=== PATIENT | female | born 1940 | race Caucasian/White ===

== ENCOUNTER 2017-03-31 13:19 | Emergency (ER) | payer MEDICAID, MEDICARE, OTHER ==
[~2017-03-31] VITALS: Ht 154.9 cm; Wt 55.0 kg
[~2017-03-31 13:19] MED LIST: AMLO5TAB4 PO; ASPI-1158 PO; BENA20TA3 PO; CIPR-263 PO; DIABETIC PILL; FURO-151 PO; GLIP5TAB12 PO; LOSA50TA20 PO; METF500T4 PO; METO-539 PO; NORT10CA PO; OMEP20CA4 PO; SIMV20TA6 PO; TRAM50TA3 PO
[2017-03-31] MEDS ORDERED: MORPHINE SULFATE 4 MG/ML CPJ (NOT FOR IM USE) IV STA (13:49)
[2017-03-31] MEDS ORDERED: SODIUM CHLORIDE 0.9% 1,000 ML IV ONE (13:49)
[2017-03-31] MEDS ORDERED: ONDANSETRON HCL 4MG/2ML VIAL IV STA (13:49)
[2017-03-31 14:17] LABS: BASOPHILS % 0.5 % (0.0-2.0); EOSINOPHILS % 2.6 % (0.0-5.0); HEMATOCRIT. 34.8 % (36.0-48.0); LYMPHOCYTES % 27.8 % (20.0-50.0); MEAN CORPUSCULAR HEMOGLOBIN 28.9 pg (28.0-32.0); MEAN CORPUSCULAR VOLUME 83.9 fL (81.0-99.0); MEAN PLATELET VOLUME 7.8 fl (7.4-10.4); MONOCYTES % 7.5 % (2.0-8.0); NEUTROPHILS % 61.6 % (40.0-76.0); PLATELET 219 x1000/uL (130-400); RED BLOOD CELL COUNT 4.15 mill/uL (4.2-5.4); RED CELL DISTRIBUTION WIDTH 15.7 % (11.6-14.6)
[2017-03-31 14:23] LABS: PARTIAL THROMBOPLASTIN TIME 27.8 sec (23.4-31.0); PROTHROMBIN TIME 10.3 sec (9.4-11.6)
[2017-03-31 14:28] LABS: CHLORIDE 97 mEq/L (98-107)
[2017-03-31 14:31] LABS: TROPONIN I 0.02 ng/mL (0.00-0.04)
[2017-03-31 14:47] LABS: CLARITY URINE CLEAR (CLEAR); COLOR URINE YELLOW (YELLOW); KETONES URINE NEGATIVE (NEGATIVE); LEUKOCYTE ESTERASE URINE 2+ (NEGATIVE); NITRITE URINE POSITIVE (NEGATIVE); OCCULT BLOOD URINE TRACE (NEGATIVE); PROTEIN URINE NEGATIVE (NEGATIVE); SPECIFIC GRAVITY URINE 1.018 (1.005-1.030); UROBILINOGEN URINE 0.2 E.U./dL (0.2-1.0)
[2017-03-31] MEDS ORDERED: HYDRALAZINE 20MG/ML VIAL IV ONE (15:00)
[2017-03-31] MEDS ORDERED: LEVOFLOXACIN 250MG TABLET PO ONE (15:00)
[2017-03-31] MEDS ORDERED: IOHEXOL-300 100 ML BOTTLE ONE (16:30)
[2017-03-31 17:12] VITALS: BP 151/56
[2017-03-31] MEDS ORDERED: ONDANSETRON 4MG ODT PO ONE (17:45)
== END 2017-03-31 18:19 | disposition home or self-care (01) ==
LOC: ER 13:36
DX: K80.20 Calculus of gallbladder without cholecystitis without obstruction (principal); N39.0 Urinary tract infection, site not specified; I10 Essential (primary) hypertension; K44.9 Diaphragmatic hernia without obstruction or gangrene; I51.7 Cardiomegaly; M16.11 Unilateral primary osteoarthritis, right hip; M85.88 Other specified disorders of bone density and structure, other site; I67.82 Cerebral ischemia; M51.26 Other intervertebral disc displacement, lumbar region; E11.9 Type 2 diabetes mellitus without complications; W01.0XXA Fall on same level from slipping, tripping and stumbling without subsequent striking against object, initial encounter; Z88.0 Allergy status to penicillin; Z97.5 Presence of (intrauterine) contraceptive device; Z79.84 Long term (current) use of oral hypoglycemic drugs; Z79.82 Long term (current) use of aspirin
CPT/HCPCS: 36415; 70450; 71045; 71260; 72100; 72125; 73521; 74177; 80053; 81001; 83690; 84484; 85025; 85610; 85730; 86850; 86900; 86901; 87077; 87086; 87186; 93005; 96361; 96374; 96375; 99285; J2270; J2405; J7030; Q0162; Q9967

== ENCOUNTER 2020-10-18 08:30 | Emergency (ER) | payer MEDICARE, MEDICAID ==
[~2020-10-18] VITALS: Ht 162.6 cm; Wt 85.0 kg
[~2020-10-18 08:30] MED LIST changes: -ASPI-1158 PO; +ASPI-1406 PO; +BENA20TA10 PO; -BENA20TA3 PO; -LOSA50TA20 PO; +LOSA50TA41 PO; +METF-414 PO; -METF500T4 PO; +SIMV-43 PO; -SIMV20TA6 PO
[2020-10-18] MEDS ORDERED: NITROGLYCERIN OINT 1GM/INCH UDPKT TD ONE (09:00)
[2020-10-18] MEDS ORDERED: ACETAMINOPHEN 325MG TABLET PO ONE ×2 (09:00→16:30)
[2020-10-18 09:18] LABS: BASOPHILS % 0.8 % (0.0-2.0); EOSINOPHILS % 2.1 % (0.0-5.0); HEMATOCRIT. 34.4 % (36.0-48.0); HEMOGLOBIN. 11.9 g/dL (12.0-16.0); LYMPHOCYTES % 32.7 % (20.0-50.0); MEAN CORPUSCULAR HEMOGLOBIN 31.2 pg (28.0-32.0); MEAN CORPUSCULAR VOLUME 90.1 fL (81.0-99.0); MEAN PLATELET VOLUME 8.4 fl (7.4-10.4); MONOCYTES % 5.9 % (2.0-8.0); NEUTROPHILS % 58.5 % (40.0-76.0); PLATELET 205 x1000/uL (130-400); RED BLOOD CELL COUNT 3.81 mill/uL (4.2-5.4)
[2020-10-18 09:24] LABS: CHLORIDE 103 mEq/L (98-107)
[2020-10-18 09:59] LABS: CLARITY URINE CLEAR (CLEAR); COLOR URINE YELLOW (YELLOW); KETONES URINE NEGATIVE (NEGATIVE); LEUKOCYTE ESTERASE URINE 3+ (NEGATIVE); NITRITE URINE NEGATIVE (NEGATIVE); OCCULT BLOOD URINE NEGATIVE (NEGATIVE); PH URINE 8.5 (4.5-8.0); PROTEIN URINE 1+ (NEGATIVE); SPECIFIC GRAVITY URINE 1.009 (1.005-1.030); UROBILINOGEN URINE 0.2 E.U./dL (0.2-1.0)
[2020-10-18] MEDS ORDERED: CEFTRIAXONE 1 G PREMIX 50 ML IV NR (10:30)
[2020-10-18] MEDS ORDERED: HYDRALAZINE 20MG/ML VIAL IV ONE (12:30)
[2020-10-18] MEDS ORDERED: ASPIRIN 325MG TABLET PO NR (12:30)
[2020-10-18] MEDS ORDERED: INSULIN LISPRO 100 UNITS/ML SUBCUT NR (17:00)
[2020-10-18 17:57] VITALS: BP 135/71
== END 2020-10-18 17:45 | disposition short-term general hospital (02) ==
LOC: ER 08:30
DX: R07.89 Other chest pain (principal); N39.0 Urinary tract infection, site not specified; R94.39 Abnormal result of other cardiovascular function study; E11.9 Type 2 diabetes mellitus without complications; I10 Essential (primary) hypertension; Z79.84 Long term (current) use of oral hypoglycemic drugs; Z79.82 Long term (current) use of aspirin; Z88.0 Allergy status to penicillin
CPT/HCPCS: 36415; 71045; 80053; 81003; 82962; 83880; 84484; 85025; 87040; 87077; 87086; 87186; 93005; 96365; 96375; 99285; J0360; J0696; J1815